=== PATIENT | male | born 1950 | race Caucasian/White ===

== ENCOUNTER 2018-01-30 22:17 | Emergency (ER) | payer MEDICARE ==
[2018-01-30] MEDS ORDERED: Adacel (T-DAP) 0.5 ML VIAL ONE (22:43)
[2018-01-30] MEDS ORDERED: Ketorolac Tromethamine 30 MG/ML VIAL ONE (22:48)
--- NOTE | 2018-01-30 23:13 | RAD ---
THREE VIEWS RIGHT FOOT: 01/30/18 HISTORY: Foreign body. Patient stepped on nail sticking out of a board at 1200 hours today. FINDINGS: There is no evidence of a fracture, dislocation, or other osseous abnormality. No radiopaque foreign body is seen. IMPRESSION: No acute osseous abnormality or radiopaque foreign body involving the right foot. POS: [facility]
== END 2018-01-30 23:35 | disposition home or self-care (01) ==
LOC: NAV ERS 22:17
DX: S91.331A Puncture wound without foreign body, right foot, initial encounter (principal); E03.9 Hypothyroidism, unspecified; I10 Essential (primary) hypertension; F41.9 Anxiety disorder, unspecified; W45.0XXA Nail entering through skin, initial encounter; Y99.0 Civilian activity done for income or pay
CPT/HCPCS: 90471; 90715; 96372; J1885